=== PATIENT | female | born 1955 | race Caucasian/White ===

== ENCOUNTER → 2016-09-30 | Outpatient (CLI) | payer OTHER | LOC: HEART 5 07:56 | DX: R00.2 Palpitations (principal); I34.0 Nonrheumatic mitral (valve) insufficiency; I49.3 Ventricular premature depolarization; I10 Essential (primary) hypertension | CPT/HCPCS: 93306 ==

== ENCOUNTER → 2016-12-06 | Outpatient (CLI) | payer OTHER | LOC: HEART 5 10:53 | DX: R00.2 Palpitations (principal); I49.3 Ventricular premature depolarization ==